=== PATIENT | male | born 1990 | race Caucasian/White ===

== ENCOUNTER 2023-04-22 08:25 | Outpatient (CLI) | payer BC, SELFPAY | END 2023-04-22 08:26 | disposition home or self-care (01) | PROVIDERS: PCP Family Medicine; Referring Provider Family Medicine; Visit Provider Family Medicine | DX: Z00.00 Encounter for general adult medical examination without abnormal findings (principal); E78.5 Hyperlipidemia, unspecified; E66.01 Morbid (severe) obesity due to excess calories; R73.09 Other abnormal glucose | CPT/HCPCS: 80053; 80061 ==

== ENCOUNTER 2023-04-23 14:23 | Outpatient (CLI) | payer BC, SELFPAY ==
[2023-04-23 15:08] LABS: Hemoglobin A1C* 5.4 % (0-5.6)
== END 2023-04-23 14:24 | disposition home or self-care (01) ==
LOC: FRMREF 14:24
PROVIDERS: PCP Family Medicine; Visit Provider Family Medicine
DX: R73.09 Other abnormal glucose (principal); E66.01 Morbid (severe) obesity due to excess calories
CPT/HCPCS: 83036

== ENCOUNTER 2023-07-22 07:54 | Outpatient (CLI) | payer BC, SELFPAY | END 2023-07-22 07:55 | disposition home or self-care (01) | PROVIDERS: PCP Family Medicine; Visit Provider Physician Assistant Medical | DX: E78.1 Pure hyperglyceridemia (principal); R74.01 Elevation of levels of liver transaminase levels; Z13.6 Encounter for screening for cardiovascular disorders | CPT/HCPCS: 80061; 84450; 84460 ==